=== PATIENT | male | born 1960 | race Caucasian/White ===

== ENCOUNTER 2022-03-19 08:29 | Day surgery (SDC) | payer BC ==
[~2022-03-19] VITALS: Ht 177.8 cm; Wt 88.5 kg
--- NOTE | 2022-03-19 09:10 | NUR ---
has irregular hr. enc him to follow up with pcp rosa pagan.
--- NOTE | 2022-03-19 09:30 | NUR ---
stated he didnt have ride home. pt called bernadette day and ask hime to pick him up. bernadette agreed.
--- NOTE | 2022-03-19 10:40 | NUR ---
03/19/22 [address] 1034-PATIENT ARRIVED TO PACU ON 2L NC RR EVEN. PATIENT DROWSY REACTIVE TO VERBAL STIMULI DENIES PAIN OR NAUSEA. ABDOMEN SOFT. 2ND BAG OF LR INFUSING. SR WITH PVCS. HOB ELEVATED. ORIENTED TO PACU
--- NOTE | 2022-03-20 06:30 | OR ---
[facility] [address], [place] [address] Signed DATE OF OPERATION: 03/19/2022 SURGEON: Royer Shaikh MD PREOPERATIVE DIAGNOSIS: Personal history of hyperplastic colonic polyps in 2013 at age 51. POSTOPERATIVE DIAGNOSES: 1. 4 mm polyp at 43 cm (left colon). 2. 3 mm polyp at 30 cm (sigmoid colon). PROCEDURE: Colonoscopy with hot biopsies. ESTIMATED BLOOD LOSS: None. INDICATIONS: Doreen is a -[id number]-fnq gentleman asked to see me for a followup screening colonoscopy. I helped him in 2012 at the age of 51 for his initial screening colonoscopy. He had a small hyperplastic polyp removed. He did well with Versed and fentanyl. We asked him to come back in 10 years for repeat screening colonoscopy. He said he has no family history of colon cancer or polyps. He is still working. He still goes running nearly every day. He maintains himself in good shape. In the office, I gave him a pamphlet on colonoscopy and we looked at that together. He understands the nature of the test. There is risk including, but not limited to gas bloating, crampy abdominal pain, bleeding, perforation requiring surgery, and missed diagnosis. We also reviewed the written instructions for the bowel prep line by line. He understands the need for IV conscious sedation. He is going to have his friend take him home. He had expressed understanding and wished to proceed. PROCEDURE NOTE: Doreen was taken into our endoscopy suite and placed in the left lateral decubitus position. He was given 7 mg of Versed and 150 mcg of fentanyl to cover the case. A digital rectal exam was performed. He had good sphincter tone. No external hemorrhoids. No masses. Prostate is a little indurated. The adult colonoscope was introduced and advanced all around into the cecum under direct visualization of the camera. It took some extra sedation and abdominal compression in order to advance the scope. Once he was relaxed, the scope went fairly readily right into the cecum itself. His prep was good. We had taken pictures throughout for photodocumentation. We could Electronically Signed By: ROYER SHAIKH MD 03/20/22 0630 PATIENT NAME: DOREEN DRAKE [facility] OPERATIVE REPORT DATE OF : 60 REPORT #: [id number] PHYSICIAN: ROYER SHAIKH MD PCP: GEORGE VARGAS MD REPORT IS CONFIDENTIAL AND NOT TO BE RELEASED WITHOUT AUTHORIZATION [facility] [address], [place] [address] Signed easily see the appendiceal orifice and ileocecal valve. We found two tiny polyps as we withdrew the scope. They were easily removed with the help of hot biopsy forceps. There was no diverticulosis. Upon retroflexion of the scope, we did not see any pathology above the anal canal. After this, the gas was suctioned out and the colonoscope removed. Doreen tolerated the procedure quite well. RECOMMENDATIONS: I will see Doreen back in my office in 7 to 10 days to review his results. He will more than likely stay on the 10-year plan. Royer Shaikh MD ALB/MODL /[id number] cc: MD Royer Montgomery MD Copies: GEORGE VARGAS MD, ANDREW L MD ~ Electronically Signed By: ROYER SHAIKH MD 03/20/22 0630 PATIENT NAME: DOREEN DRAKE OPERATIVE REPORT DATE OF : 60 REPORT #: [id number] PHYSICIAN: ROYER SHAIKH MD PCP: GEORGE VARGAS MD REPORT IS CONFIDENTIAL AND NOT TO BE RELEASED WITHOUT AUTHORIZATION
--- NOTE | 2022-03-20 16:23 | PATH ---
[facility] [address] [facility] [place], [place] [address] Signed SPECIMEN(S): A LEFT DESCENDING COLON POLYP AT 43 CM SPECIMEN(S): B SIGMOID POLYP AT 30 CM SPECIMEN SOURCE: A. LEFT DESCENDING COLON POLYP AT 43 CM B. SIGMOID POLYP AT 30 CM CLINICAL HISTORY: Pre: History of polyps. Post: Polyps x 2. FINAL PATHOLOGIC DIAGNOSIS: A. Left descending colon polyp at 43 cm: - Hyperplastic polyp (one fragment). B. Sigmoid polyp at 30 cm: - Hyperplastic polyp (one fragment). JVR:[facility]:C2NR MICROSCOPIC EXAMINATION: Histologic sections of all submitted blocks are examined by light microscopy. These findings, together with the gross examination, support the pathologic diagnosis. GROSS DESCRIPTION: A. The specimen, labeled and designated "Banister, ascending colon polyp at 43 cm," is received in formalin and consists of one jay soft tissue fragment, 0.1 cm. Entirely submitted in (A1). B. The specimen, labeled and designated "Banister, sigmoid colon polyp at 30 cm," is received in formalin and consists of one jay soft tissue fragment, 0.1 cm. Entirely submitted in (B1). JS (under the direct supervision of a pathologist) The Gross Description was prepared using a voice recognition system. The report was reviewed for accuracy; however, sound-alike word errors, addition and/or deletions may occur. If there is any question about this report, please contact Client Services. PERFORMING LABORATORY: The technical component was performed by [facility], [address] [place] [id number] (CLIA# [id number]). Professional interpretation was performed by [email or web address] - [facility], [address] [place] [id number] (CLIA#: [id number]). PATIENT NAME: DOREEN DRAKE PATHOLOGY DATE OF : 60 REPORT #: [id number] PHYSICIAN: [facility] PCP: GEORGE VARGAS MD REPORT IS CONFIDENTIAL AND NOT TO BE RELEASED WITHOUT AUTHORIZATION [address] [place] [address] Signed Diagnostician: Ameya Waters MD Pathologist Electronically Signed 03/20/2022 Copies: ~ PATIENT NAME: DOREEN DRAKE PATHOLOGY DATE OF : 60 REPORT #: [id number] PHYSICIAN: [facility] PCP: GEORGE VARGAS MD REPORT IS CONFIDENTIAL AND NOT TO BE RELEASED WITHOUT AUTHORIZATION
== END 2022-03-19 11:20 | disposition home or self-care (01) ==
LOC: DS 08:29
PROVIDERS: ATTEND Colon & Rectal Surgery
PROC: 0DBN8ZX Excision of Sigmoid Colon, Via Natural or Artificial Opening Endoscopic, Diagnostic (ICD-10-PCS; 2022-03-19)
PROC: 0DBM8ZX Excision of Descending Colon, Via Natural or Artificial Opening Endoscopic, Diagnostic (ICD-10-PCS; principal; 2022-03-19 09:45)
DX: R19.4 Change in bowel habit (principal); K63.5 Polyp of colon; N42.89 Other specified disorders of prostate; M19.90 Unspecified osteoarthritis, unspecified site; Z86.010 Personal history of colon polyps
CPT/HCPCS: 99153; G0500; J2250; J3010; J7121